=== PATIENT | female | born 1955 | race Caucasian/White ===

== ENCOUNTER 2023-10-16 06:43 | Day surgery (SDC) | payer MEDICARE, OTHER ==
[2023-10-09 14:10] VITALS: BMI 25.1
[~2023-10-16 06:43] MED LIST: LACTATED RINGERS 1,000 ML IV SCH; MOXIFLOXACIN HCL 0.5% DROPS 3 ML BTL OP PRN; TETRACAINE 0.5% OPHTH (PF) DROPS 4 ML BTL OP PRN; TIMOLOL 0.5% OPHTH DROPS 5 ML BTL OP PRN
[2023-10-16] MEDS: CYCLOPENTOLATE 1% OPHTH SOLN 2 ML BTL OP PRN ×3 (07:32→07:44)
[2023-10-16] MEDS: PHENYLEPHRINE 2.5% OPHTH DRP 2ML OP PRN ×3 (07:35→07:47)
[2023-10-16 07:46] VITALS: RESP 16; TEMP 97.9
[2023-10-16] MEDS ORDERED: MIDAZOLAM 2 MG/2 ML VIAL ONE (08:20)
[2023-10-16] MEDS ORDERED: fentaNYL (PF) 50 MCG/ML 2 ML AMP ONE (08:20)
[2023-10-16] MEDS ORDERED: HYALURONATE SODIUM INTRAOCULAR 1 EACH SYRINGE (12MG/ML) INTRAOCULA ONE (08:33)
[2023-10-16] MEDS ORDERED: BALANCED SALT IRRIG SOLN COMB2 15 ML IRRIG.SOLN IRRIGATION ONE (08:33)
[2023-10-16] MEDS ORDERED: LIDOCAINE 1% (PF) 10MG/ML VIAL MISCELLANE ONE (08:34)
--- NOTE | 2023-10-16 09:00 | P.OP ---
Date of Procedure: 10/16/23 Preoperative Diagnosis: NS Postoperative Diagnosis: NS Procedure(s) Performed: PIOL< OD Implants: MX60ET 22.50 Anesthesia: MAC Surgeon: Davian Garnica Pathology: none sent Condition: stable Disposition: same day Indications for Procedure: blurry vision Operative Findings: no complications
[2023-10-16 09:30] VITALS: BP 120/64; PULSE 59
--- NOTE | 2023-10-16 13:27 | OP ---
OPERATIVE REPORT DATE OF SERVICE : 10/16/2023 PROCEDURE PERFORMED: Phacoemulsification of cataract and intraocular lens implant of the right eye. PREOPERATIVE DIAGNOSES: Nuclear sclerosis and regular astigmatism. POSTOPERATIVE DIAGNOSES: Nuclear sclerosis and regular astigmatism. ANESTHESIA: Topical. ESTIMATED BLOOD LOSS: None. SPECIMEN TAKEN: None. NARRATIVE: After obtaining the appropriate consent, the patient was asked to sit upright and the axes of 0 and 180 degrees were identified and marked with a gentian poli marker. She was then placed in the proper supine position using previously acquired corneal topography information, the axis of 20 degrees was identified and marked with a gentian poli marker using a Vostu axis indexing device. At the 11 o'clock position, an MVR blade was used to create a paracentesis port. Through this opening, 1% Xylocaine MPF 50:50 mix with balanced salt solution was injected into the anterior chamber. This was followed by stabilization of the anterior chamber with Amvisc. At the 9 o'clock position, a 2.5 mm keratome was used to create a self-sealing corneal flap incision. Through this opening, a cystotome was introduced to begin a continuous tear capsulorrhexis, which was completed using the Utrata forceps. Hydrodissection and hydrodelineation of the lens were accomplished in 12.1 seconds and 12.8% power utilizing phaco chop. This was followed by installation of additional Xylocaine MPF and removal of the remaining cortical material from the lens in lens capsule bag, which was also lightly polished in the capsule vacuum mode. Additional Amvisc was then used to stabilize the capsular bag. A Bausch and Lomb [id number], 22.5 diopter posterior chamber intraocular lens was then inserted into the capsular bag without difficulty. The viscoelastic was removed from in and around the intraocular lens. The lens was then rotated to the 20 degree axis markos previously placed on the patient's cornea. The incisions were confirmed watertight and secured with Tisseel. She then received 2 drops of 0.5% timolol, followed by 2 drops of 0.5% moxifloxacin. It was then lightly patched and shielded in the usual manner. There were no complications from the procedure. She tolerated the procedure well and was returned to outpatient recovery in good condition. MMODL / IJN: [id number] /
== END 2023-10-16 09:35 | disposition home or self-care (01) ==
LOC: OR 06:43
PROVIDERS: ATTEND Ophthalmology
DX: H25.11 Age-related nuclear cataract, right eye (principal); H52.221 Regular astigmatism, right eye; I10 Essential (primary) hypertension; E07.9 Disorder of thyroid, unspecified; M19.90 Unspecified osteoarthritis, unspecified site; K21.9 Gastro-esophageal reflux disease without esophagitis; Z79.890 Hormone replacement therapy; Z79.899 Other long term (current) drug therapy; Z87.898 Personal history of other specified conditions
CPT/HCPCS: 66984; V2787; C1780; J2250; J3010; J2001

== ENCOUNTER 2023-12-04 06:20 | Day surgery (SDC) | payer MEDICARE, OTHER ==
[2023-11-28 16:19] VITALS: BMI 25.1
[~2023-12-04 06:20] MED LIST changes: -LACTATED RINGERS 1,000 ML IV SCH; -MOXIFLOXACIN HCL 0.5% DROPS 3 ML BTL OP PRN; -TIMOLOL 0.5% OPHTH DROPS 5 ML BTL OP PRN
[2023-12-04] MEDS: LACTATED RINGERS 1,000 ML IV ONE (06:43)
[2023-12-04] MEDS ORDERED: LIDOCAINE 1% (10MG/ML) FOR IV START INTRADERMA PRN (06:43)
[2023-12-04] MEDS ORDERED: LACTATED RINGERS 1,000 ML IV SCH (06:43)
[2023-12-04] MEDS: PHENYLEPHRINE 2.5% OPHTH DRP 2ML OP PRN (06:51)
[2023-12-04] MEDS: CYCLOPENTOLATE 1% OPHTH SOLN 2 ML BTL OP PRN (06:54)
[2023-12-04] MEDS ORDERED: fentaNYL (PF) 50 MCG/ML 2 ML AMP ONE (07:29)
[2023-12-04] MEDS ORDERED: MIDAZOLAM 2 MG/2 ML VIAL ONE (07:29)
[2023-12-04 07:36] VITALS: RESP 16; TEMP 97.3
[2023-12-04] MEDS: TIMOLOL 0.5% OPHTH DROPS 5 ML BTL OP PRN (07:57)
[2023-12-04] MEDS: MOXIFLOXACIN HCL 0.5% DROPS 3 ML BTL OP PRN (07:57)
[2023-12-04] MEDS: BALANCED SALT IRRIG SOLN COMB2 15 ML IRRIG.SOLN INTRAOCULA ONE (07:58)
[2023-12-04] MEDS: HYALURONATE SODIUM INTRAOCULAR 1 EACH SYRINGE (12MG/ML) INTRAOCULA ONE (07:58)
[2023-12-04] MEDS: LIDOCAINE 1% (PF) 10MG/ML VIAL MISCELLANE ONE (07:58)
[2023-12-04] MEDS: EPINEPHrine (PF) 0.3 ML in BALANCED SALT IRRIG SOLN COMB2 500 ML IRRIGATION ONE (08:00)
--- NOTE | 2023-12-04 08:11 | P.OP ---
Date of Procedure: 12/04/23 Preoperative Diagnosis: NS Postoperative Diagnosis: same Procedure(s) Performed: PIOL, OS Implants: [id number] Anesthesia: MAC Surgeon: Davian Garnica Pathology: none sent Condition: stable Disposition: same day Indications for Procedure: blurry vision Operative Findings: no complications
[2023-12-04 08:47] VITALS: BP 114/73; PULSE 71
--- NOTE | 2023-12-04 12:58 | OP ---
OPERATIVE REPORT DATE OF SERVICE : 12/04/2023 PREOPERATIVE DIAGNOSIS: Nuclear sclerosis. POSTOPERATIVE DIAGNOSIS: Nuclear sclerosis. OPERATION: Phacoemulsification of cataract and interocular lens implant of the left eye. ESTIMATED BLOOD LOSS: Zero. SPECIMEN TAKEN: None. NARRATIVE: After obtaining the appropriate consent, the patient was brought to the operating room where the patient was placed under cardiac monitoring and prepped and draped in the usual sterile manner. At the 5 o'clock position, a 15-degree super sharp blade was used to create a paracentesis followed by instillation of 1% Xylocaine MPF 50:50 mix with BSS into the anterior chamber. This was followed by Amvisc viscoelastic to stabilize the anterior chamber. At the 3 o'clock position a self-sealing corneal flap incision was created using 2.8 mm sirena keratome. A cystotome was used to initiate a continuous tear capsulorrhexis which was completed with the Utrata forceps. A Binkhorst cannula was used to hydrodissect the lens nucleus followed by hydrodelineation. Phacoemulsification of the lens was performed utilizing phacochop in 14.14 seconds at 15% power. The remaining cortical material was removed using the irrigation aspiration mode followed by additional 1% Xylocaine MPF into the anterior chamber followed by viscoelastic to stabilize the capsular bag. A Bausch & Lomb [id number] 23.5 diopters posterior chamber lens was placed into the capsular bag without difficulty. The remaining viscoelastic material was removed from the anterior chamber with the irrigation/aspiration. Balanced salt solution was used to normalize the intraocular pressure. The incision was checked for watertight integrity. The patient then received 2 drops of 0.5% timolol followed by 2 drops Vigamox, was lightly patched and shielded in the usual manner. There were no complications from the procedure. The patient tolerated the procedure well and was returned to recovery in good condition. MMODL / IJN: [id number] /
== END 2023-12-04 08:50 | disposition home or self-care (01) ==
LOC: OR 06:20
PROVIDERS: ATTEND Ophthalmology
DX: H25.12 Age-related nuclear cataract, left eye (principal); I10 Essential (primary) hypertension; H40.003 Preglaucoma, unspecified, bilateral; H40.233 Intermittent angle-closure glaucoma, bilateral; H52.03 Hypermetropia, bilateral; H52.4 Presbyopia; Z96.1 Presence of intraocular lens; K21.9 Gastro-esophageal reflux disease without esophagitis; M19.90 Unspecified osteoarthritis, unspecified site; Z98.890 Other specified postprocedural states; Z79.899 Other long term (current) drug therapy
CPT/HCPCS: 66984; C1780; J2250; J0171; J3010; J2001

== ENCOUNTER 2024-03-24 11:01 | Day surgery (SDC) | payer MEDICARE, OTHER ==
[2024-03-24 11:47] VITALS: TEMP 97.1
[2024-03-24] MEDS: LACTATED RINGERS 1,000 ML IV SCH (11:54)
[2024-03-24] MEDS: IV FLUID CONTINUATION 1,000 ML IV ONE (11:55)
[2024-03-24] MEDS ORDERED: PROPOFOL 10 MG/ML 20 ML VIAL IV ONE (12:21)
[2024-03-24] MEDS ORDERED: LIDOCAINE 1% INJ 10MG/ML (20 ML MDV) ONE (12:21)
--- NOTE | 2024-03-24 12:28 | P.GSHP ---
History of Present Illness H&P Date: 03/24/24 Chief Complaint: GERD 69-year-old female here for EGD with possible biopsy or dilation. Patient with chronic reflux. Some worsening dysphagia recently. Apparently has a history of Damon's esophagus in the past. Takes Pepcid once nightly. Past Medical History Past Medical History: GERD/Reflux, Osteoarthritis (OA), Thyroid Disorder Additional Past Medical History / Comment(s): OA "everywhere", and "PAT- excercise induced tachycardia"; dislocated right shoulder 2 yrs ago after fall; hx. barretts esophagus and ulcer on first EGD 10-12 yrs ago. food feeling like it "gets stuck" History of Any Multi-Drug Resistant Organisms: None Reported Past Surgical History: Appendectomy, Orthopedic Surgery, Tonsillectomy Additional Past Surgical History / Comment(s): "bone spurs removed from each shoulder." Deviated septal repair; cataract removal rt eye Sep 2023, cataracts removed left eye November 2023. EGD, colonoscopy about 5 yrs ago. Past Anesthesia/Blood Transfusion Reactions: No Reported Reaction Additional Past Anesthesia/Blood Transfusion Reaction / Comment(s): No hx of blood transfusion. Smoking Status: Never smoker - Past Family History Father Family Medical History: No Reported History Medications and Allergies Home Medications Medication Instructions Recorded Confirmed Type Acetaminophen [Tylenol Extra 1,000 mg PO QID PRN 10/09/23 03/24/24 History Strength] Baclofen 5 mg PO HS PRN 10/09/23 03/24/24 History Calcium Carbonate/Vitamin D3 1 each PO HS 10/09/23 03/24/24 History [Calcium 600 mg-D3 20 mcg (800 unit)] Famotidine [Pepcid] 20 mg PO HS 10/09/23 03/24/24 History Levocetirizine Dihydrochloride 5 mg PO DAILY PRN 10/09/23 03/24/24 History Levothyroxine Sodium [Synthroid] 112 mcg PO QAM 10/09/23 03/24/24 History Metoprolol Succinate [Toprol XL] 50 mg PO HS 10/09/23 03/24/24 History Allergies Allergy/AdvReac Type Severity Reaction Status Date / Time No Known Allergies Allergy Verified 03/24/24 11:43 Surgical - Exam Vital Signs Temp Pulse Resp BP Pulse Ox 97.1 F L 62 18 149/76 96 03/24/24 11:41 03/24/24 11:41 03/24/24 11:41 03/24/24 11:41 03/24/24 11:41 Physical exam: General: Well-developed, well-nourished HEENT: Normocephalic, sclerae nonicteric Abdomen: Nontender, nondistended Extremities: No edema Neuro: Alert and oriented Assessment and Plan (1) Dysphagia Narrative/Plan: Will proceed with EGD with possible dilation/biopsy at this time. Current Visit: Yes Status: Acute Code(s): R13.10 - DYSPHAGIA, UNSPECIFIED SNOMED Code(s): 01244991
--- NOTE | 2024-03-24 12:35 | P.PCN ---
Date of Procedure: 03/24/24 Procedure(s) Performed: Preoperative Dx: History of ulcers, dysphagia Postoperative Dx: Mild gastritis, small hiatal hernia, small esophageal lesion Procedure: EGD with Bx Anesthesia: Sedation Endoscopist: Dr. Cummings Specimens: Antrum, esophageal lesion Endoscopic Procedure: The patient was on the endoscopy table in the left decubitus position. The Olympus gastroscope was inserted into the oropharynx and passed under direct visualization to the region of the third portion of the duodenum. From that point the scope was slowly withdrawn inspecting all surfaces carefully. There were no neoplastic inflammatory or polypoid lesions throughout the duodenum. The pylorus was widely patent. The stomach was carefully inspected. There was mild gastritis present. A biopsy of the antrum took place to rule out H. pylori. Retroflexion revealed a small sliding hiatal hernia. The esophagus was then carefully examined. There was noted to be a small superficial 3 to 4 mm lesion of the mid esophagus. This was removed using a biopsy forceps. The proximal esophagus appeared normal. There was no signs of Damon's esophagus. There was no evidence of stricture formation or narrowing. The patient was then taken to the recovery room in stable condition per anesthesia guidelines. Recommendations: Await biopsy results. Continue as needed antiacid therapy.
[2024-03-24 12:41] VITALS: RESP 16
[2024-03-24 13:05] VITALS: BP 120/61; PULSE 64
== END 2024-03-24 13:22 | disposition home or self-care (01) ==
LOC: ORWHC2ENDO 11:01
PROVIDERS: ATTEND Surgery
DX: K29.50 Unspecified chronic gastritis without bleeding (principal); K44.9 Diaphragmatic hernia without obstruction or gangrene; K21.9 Gastro-esophageal reflux disease without esophagitis; E07.9 Disorder of thyroid, unspecified; M19.90 Unspecified osteoarthritis, unspecified site; Z79.890 Hormone replacement therapy; Z90.49 Acquired absence of other specified parts of digestive tract; Z90.89 Acquired absence of other organs; Z87.19 Personal history of other diseases of the digestive system; Z79.899 Other long term (current) drug therapy
CPT/HCPCS: 43239; J2001; J2704; 88305

== ENCOUNTER 2024-07-20 14:12 | Observation (INO) | payer MEDICARE, OTHER ==
[2024-07-20 14:34] LABS: Glucose,Whole Blood 101 mg/dL (70-110)
--- NOTE | 2024-07-20 14:38 | ED ---
Neuro HPI - General Chief Complaint: Neuro Symptoms/Deficit Stated Complaint: migraine Time Seen by Provider: 07/20/24 14:27 Source: patient, RN notes reviewed, old records reviewed Mode of arrival: ambulatory Limitations: no limitations - History of Present Illness Is the patient presenting with stroke symptoms?: No -: hour(s) Initial Comments: This is a 69-year-old female to the ER for evaluation of significant expressive aphasia starting when she awoke from a nap this afternoon. This occurred maybe around noon when she laid down to her nap between when she awoke about an hour prior to arrival in the emergency department. Patient has no history of stroke, no history of high blood pressure high cholesterol diabetes no history of smoking or heart disease. Patient symptoms of significant confusion with word finding difficulty expressing her thoughts and feelings are improved currently Location: speech, dysarthria History of same: Yes Place: home Severity: mild Quality: weak, numb, tingling Improves With: none Worsens With: time On Anticoagulants: No Context: sudden onset Associated Symptoms: confusion Treatments Prior to Arrival: none - Related Data Home Medications: Home Medications Medication Instructions Recorded Confirmed Calcium Carbonate/Vitamin D3 1 tab PO HS 10/09/23 07/20/24 [Calcium 600 mg-D3 20 mcg (800 unit)] Famotidine [Pepcid] 20 mg PO HS 10/09/23 07/20/24 Levocetirizine Dihydrochloride 5 mg PO HS 10/09/23 07/20/24 Levothyroxine Sodium [Synthroid] 112 mcg PO DAILY 10/09/23 07/20/24 Metoprolol Succinate [Toprol XL] 50 mg PO HS 10/09/23 07/20/24 Levothyroxine Sodium [Synthroid] 56 mcg PO SUWEFR 07/20/24 07/20/24 Previous Rx's Medication Instructions Recorded Aspirin EC [Ecotrin Low Dose] 81 mg PO DAILY #30 tab 07/22/24 Atorvastatin [Lipitor] 20 mg PO HS #30 tablet 07/22/24 Allergies/Adverse Reactions: Allergies Allergy/AdvReac Type Severity Reaction Status Date / Time No Known Allergies Allergy Verified 07/20/24 16:27 Review of Systems ROS Statement: Those systems with pertinent positive or pertinent negative responses have been documented in the HPI. ROS Other: All systems not noted in ROS Statement are negative. General Exam Limitations: no limitations General appearance: alert, in no apparent distress Head exam: Present: atraumatic, normocephalic, normal inspection Eye exam: Present: normal appearance, PERRL, EOMI. Absent: scleral icterus, co njunctival injection, periorbital swelling ENT exam: Present: normal exam, mucous membranes moist Neck exam: Present: normal inspection. Absent: tenderness, meningismus, lymphadenopathy Respiratory exam: Present: normal lung sounds bilaterally. Absent: respiratory distress, wheezes, rales, rhonchi, stridor Cardiovascular Exam: Present: regular rate, normal rhythm, normal heart sounds. Absent: systolic murmur, diastolic murmur, rubs, gallop, clicks GI/Abdominal exam: Present: soft, normal bowel sounds. Absent: distended, tenderness, guarding, rebound, rigid Extremities exam: Present: normal inspection, full ROM, normal capillary refill. Absent: tenderness, pedal edema, joint swelling, calf tenderness Back exam: Present: normal inspection Neurological exam: Present: alert, oriented X3, CN II-XII intact Psychiatric exam: Present: normal affect, normal mood Skin exam: Present: warm, dry, intact, normal color. Absent: rash Stroke MDM - Lab Data Result diagrams: 07/20/24 14:28 07/20/24 14:28 Lab Results 07/20/24 07/20/24 07/20/24 Range/Units 14:28 14:28 14:28 WBC 7.4 (3.8-10.6) k/uL RBC 5.17 (3.80-5.40) m/uL Hgb 15.1 (11.4-16.0) gm/dL Hct 45.5 (34.0-46.0) % MCV 87.9 (80.0-100.0) fL MCH 29.3 (25.0-35.0) pg MCHC 33.3 (31.0-37.0) g/dL RDW 12.8 (11.5-15.5) % Plt Count 251 (150-450) k/uL MPV 6.8 Neutrophils % 56 % Lymphocytes % 34 % Monocytes % 5 % Eosinophils % 2 % Basophils % 1 % Neutrophils # 4.1 (1.3-7.7) k/uL Lymphocytes # 2.5 (1.0-4.8) k/uL Monocytes # 0.4 (0-1.0) k/uL Eosinophils # 0.1 (0-0.7) k/uL Basophils # 0.1 (0-0.2) k/uL PT 10.3 (10.0-12.5) sec INR 0.9 (<1.2) APTT 28.9 (22.0-30.0) sec Sodium 139 (137-145) mmol/L Potassium 4.8 (3.5-5.1) mmol/L Chloride 103 (98-107) mmol/L Carbon Dioxide 26 (22-30) mmol/L Anion Gap 10 mmol/L BUN 21 H (7-17) mg/dL Creatinine 0.82 (0.52-1.04) mg/dL Est GFR (CKD-EPI)AfAm 84 (>60 ml/min/1.73 sqM) Est GFR (CKD-EPI)NonAf 73 (>60 ml/min/1.73 sqM) Glucose 104 H (74-99) mg/dL POC Glucose (mg/dL) (70-110) mg/dL POC Glu Parboiler ID Estimated Ave Glu mg/dL mg/dL Hemoglobin A1c (<=6.0) % Calcium 9.9 (8.4-10.2) mg/dL Total Bilirubin 0.9 (0.2-1.3) mg/dL AST 31 (14-36) U/L ALT 21 (4-34) U/L Alkaline Phosphatase 93 (38-126) U/L Creatine Kinase 85 (30-135) U/L Troponin I (0.000-0.034) ng/mL Total Protein 7.6 (6.3-8.2) g/dL Albumin 4.8 (3.5-5.0) g/dL 07/20/24 07/20/24 07/20/24 Range/Units 14:28 14:28 14:31 WBC (3.8-10.6) k/uL RBC (3.80-5.40) m/uL Hgb (11.4-16.0) gm/dL Hct (34.0-46.0) % MCV (80.0-100.0) fL MCH (25.0-35.0) pg MCHC (31.0-37.0) g/dL RDW (11.5-15.5) % Plt Count (150-450) k/uL MPV Neutrophils % % Lymphocytes % % Monocytes % % Eosinophils % % Basophils % % Neutrophils # (1.3-7.7) k/uL Lymphocytes # (1.0-4.8) k/uL Monocytes # (0-1.0) k/uL Eosinophils # (0-0.7) k/uL Basophils # (0-0.2) k/uL PT (10.0-12.5) sec INR (<1.2) APTT (22.0-30.0) sec Sodium (137-145) mmol/L Potassium (3.5-5.1) mmol/L Chloride (98-107) mmol/L Carbon Dioxide (22-30) mmol/L Anion Gap mmol/L BUN (7-17) mg/dL Creatinine (0.52-1.04) mg/dL Est GFR (CKD-EPI)AfAm (>60 ml/min/1.73 sqM) Est GFR (CKD-EPI)NonAf (>60 ml/min/1.73 sqM) Glucose (74-99) mg/dL POC Glucose (mg/dL) 101 (70-110) mg/dL POC Glu Parboiler ID Job [address] Est[address] Glu mg/dL 117 mg/dL Hemoglobin A1c 5.7 (<=6.0) % Calcium (8.4-10.2) mg/dL Total Bilirubin (0.2-1.3) mg/dL AST (14-36) U/L ALT (4-34) U/L Alkaline Phosphatase (38-126) U/L Creatine Kinase (30-135) U/L Troponin I <0.012 (0.000-0.034) ng/mL Total Protein (6.3-8.2) g/dL Albumin (3.5-5.0) g/dL - NIH Stroke Scale 1a. Level of Consciousness: (0) alert 1b. LOC Questions: (0) answers correctly 1c. LOC Commands: (0) performs tasks correctly 2. Best Gaze: (0) normal 3. Visual: (0) no visual loss 4. Facial Palsy: (0) normal symmetrical movement 5a. Motor Arm Left: (0) no drift 5b. Motor Arm Right: (0) no drift 6a. Motor Leg Left: (0) no drift 6b. Motor Leg Right: (0) no drift 7. Limb Ataxia: (0) absent 8. Sensory: (0) normal 9. Best Language: (0) no aphasia 10. Dysarthria: (0) normal 11. Extinction/Inattention: (0) no abnormality - Thrombolytic Inclusion/Exclusion Thrombolytic Exclusion Criteria: Onset of Symptoms Unknown (3 to 4 hours prior to arrival, but unsure of this is when patient laid down for a nap) Thrombolytic Inclusion Criteria: Symptom Onset < 4.5 h - Medical Decision Making 69 female to ER for evaluation of CVA symptoms expressive aphasia which are resolved on arrival to the ER patient continues to improve here in the ER has normal imaging and can be admitted for further neurologic monitoring - Radiology Data Radiology results: report reviewed (CT brain CTA head neck negative for acute disease), image reviewed - EKG Data -: EKG Interpreted by Me (EKG sinus 66 GA 134 QRS 113 QTc 405) Past Medical History Past Medical History: GERD/Reflux, Osteoarthritis (OA), Thyroid Disorder Additional Past Medical History / Comment(s): OA "everywhere", and "PAT-excercise induced tachycardia"; dislocated right shoulder 2 yrs ago after fall; hx. barretts esophagus and ulcer on first EGD 10-12 yrs ago. food feeling like it "gets stuck" History of Any Multi-Drug Resistant Organisms: None Reported Past Surgical History: Appendectomy, Orthopedic Surgery, Tonsillectomy Additional Past Surgical History / Comment(s): "bone spurs removed from each shoulder." Deviated septal repair; cataract removal rt eye Sep 2023, cataracts removed left eye November 2023. EGD, colonoscopy about 5 yrs ago. Past Anesthesia/Blood Transfusion Reactions: No Reported Reaction Additional Past Anesthesia/Blood Transfusion Reaction / Comment(s): No hx of blood transfusion. Past Psychological History: No Psychological Hx Reported Smoking Status: Never smoker Past Alcohol Use History: None Reported Past Drug Use History: None Reported - Past Family History Father Family Medical History: No Reported History Course Vital Signs 07/20/24 07/20/24 07/20/24 14:18 14:21 15:58 Temperature 98.4 F Pulse Rate 75 68 64 Respiratory 18 16 20 Rate Blood Pressure 156/82 160/85 141/77 O2 Sat by Pulse 99 98 98 Oximetry 07/20/24 07/20/24 07/20/24 16:00 16:47 18:00 Temperature Pulse Rate 64 68 77 Respiratory 20 20 20 Rate Blood Pressure 141/77 140/68 140/60 O2 Sat by Pulse 98 98 98 Oximetry 07/20/24 07/21/24 07/21/24 22:01 02:34 06:25 Temperature Pulse Rate 66 65 67 Respiratory 17 18 17 Rate Blood Pressure 129/76 116/72 125/70 O2 Sat by Pulse 99 95 Oximetry 07/21/24 07/21/24 07/21/24 07:42 09:25 11:25 Temperature 98.6 F 98.4 F Pulse Rate 64 68 76 Respiratory 16 16 16 Rate Blood Pressure 118/64 132/75 134/73 O2 Sat by Pulse 98 98 96 Oximetry 07/21/24 07/21/24 07/21/24 12:28 14:17 16:27 Temperature 97.7 F 98.6 F Pulse Rate 80 79 76 Respiratory 17 17 18 Rate Blood Pressure 135/83 131/68 129/84 O2 Sat by Pulse 96 98 95 Oximetry 07/21/24 07/21/24 18:21 20:36 Temperature 98.4 F 98.9 F Pulse Rate 71 67 Respiratory 17 17 Rate Blood Pressure 130/87 135/76 O2 Sat by Pulse 79 L 97 Oximetry - Reevaluation(s) Reevaluation #1: 07/20/24 17:46 Medical records reviewed Code stroke was paged Reevaluation #2: 07/20/24 17:46 Patient symptoms resolved remain resolved Reevaluation #3: 07/20/24 17:46 Patient informed of results questions answered Reevaluation #4: Was pt. sent in by a medical professional or institution (, PA, COAT EXAMINER, urgent care, hospital, or care home...) When possible be specific @ -no Did you speak to anyone other than the patient for history (EMS, parent, family, police, friend...)? What history was obtained from this source @ -no Did you review nursing and triage notes (agree or disagree)? Why? @ -agree Are old charts reviewed (outside hosp., previous admission, EMS record, old EKG, old radiological studies, urgent care reports/EKG's, care home records)? Report findings @ -yes Differential Diagnosis (chest pain, altered mental status, abdominal pain women, abdominal pain men, vaginal bleeding, weakness, fever, dyspnea, syncope, headache, dizziness, GI bleed, back pain, seizure, CVA, palpatations, mental health, musculoskeletal)? @ -prior EKG interpreted by me (3pts min.). @ -yes X-rays interpreted by me (1pt min.). @ -yes negative for acute disease CT interpreted by me (1pt min.). @ -Yes negative for acute bleed or acute disease U/S interpreted by me (1pt. min.). @ -no What testing was considered but not performed or refused? (CT, X-rays, U/S, labs)? Why? @ -none What meds were considered but not given or refused? Why? @ -none Did you discuss the management of the patient with other professionals (professionals i.e. , PA, COAT EXAMINER, lab, RT, psych nurse, social welfare research worker, morgue attendant, teacher, senior escrow officer, medical case manager)? Give summary @ -no Was smoking cessation discussed for >3mins.? @ -no Was critical care preformed (if so, how long)? @ -yes31 Were there social determinants of health that impacted care today? How? (Homel essness, low income, unemployed, alcoholism, drug addiction, transportation, low edu. Level, literacy, decrease access to med. care, [facility], rehab)? @ -none Was there de-escalation of care discussed even if they declined (Discuss DNR or withdrawal of care, Hospice)? DNR status @ -no What co-morbidities impacted this encounter? (DM, HTN, Smoking, COPD, CAD, Cancer, CVA, ARF, Chemo, Hep., AIDS, mental health diagnosis, sleep apnea, morbid obesity)? @ -none Was patient admitted / discharged? Hospital course, mention meds given and route, prescriptions, significant lab abnormalities, going to OR and other pertinent info. @ - 69 female to ER for evaluation of CVA symptoms expressive aphasia which are resolved on arrival to the ER patient continues to improve here in the ER has normal imaging and can be admitted for further neurologic monitoring Expressive aphasia Admitted Undiagnosed new problem with uncertain prognosis? @ -no Drug Therapy requiring intensive monitoring for toxicity (Heparin, Nitro, Insulin, Cardizem)? @ -no Were any procedures done? @ -no Diagnosis/symptom? @ -CVA Acute, or Chronic, or Acute on Chronic? @ -Acute Uncomplicated (without systemic symptoms) or Complicated (systemic symptoms)? @ -Complicated Side effects of treatment? @ -no Exacerbation, Progression, or Severe Exacerbation? @ -exacerbation Poses a threat to life or bodily function? How? (Chest pain, [place], VA, pneumonia, PE, COPD, DKA, ARF, appy, cholecystitis, CVA, Diverticulitis, Homicidal, Suicidal, threat to staff... and all critical care pts) @ -yes acute CVA Reevaluation #5: Differential CVA Ischemic stroke, hemorrhagic stroke, brain tumor, atypical migraine, Wernicke's encephalopathy, seizure, multiple sclerosis, meningitis, encephalitis, hypoglycemia, Guillain-Padgett, electrolytes disturbance, myasthenia gravis.... This is not meant to be an all-inclusive list - Consultations Consultation #1: Spoke with Dr. Pfeiffer who agrees to admit this patient Critical Care Time Critical Care Time: Yes Total Critical Care Time: 31 Disposition Clinical Impression: Cerebrovascular accident (CVA), Transient cerebral ischemia Disposition: ADMITTED IP TO THIS HOSP Condition: Serious Is patient prescribed a controlled substance at d/c from ED?: No Time of Disposition: 17:45
[2024-07-20] MEDS: SODIUM CHLORIDE 0.9% 1,000 ML IV STA (14:39)
[2024-07-20 14:43] LABS: Basophils # (A) 0.1 k/uL (0-0.2); Basophils % (A) 1 %; Eosinophils # (A) 0.1 k/uL (0-0.7); Eosinophils % (A) 2 %; HCT 45.5 % (34.0-46.0); HGB 15.1 gm/dL (11.4-16.0); Lymphocytes # (A) 2.5 k/uL (1.0-4.8); Lymphocytes % (A) 34 %; MCH 29.3 pg (25.0-35.0); MCHC 33.3 g/dL (31.0-37.0); MCV 87.9 fL (80.0-100.0); Mean Platelet Volume 6.8; Monocytes # (A) 0.4 k/uL (0-1.0); Monocytes % (A) 5 %; Neutrophils # (A) 4.1 k/uL (1.3-7.7); Neutrophils % (A) 56 %; Platelet Count 251 k/uL (150-450); RBC 5.17 m/uL (3.80-5.40); RDW 12.8 % (11.5-15.5); WBC 7.4 k/uL (3.8-10.6)
[2024-07-20 14:51] LABS: INR 0.9 (<1.2)
[2024-07-20 14:52] LABS: Partial Thromboplastin Time 28.9 sec (22.0-30.0); Prothrombin Time 10.3 sec (10.0-12.5)
[2024-07-20 14:59] LABS: ALT 21 U/L (4-34); AST 31 U/L (14-36); African American GFR (CKD) 84 (>60 ml/min/1.73 sqM); Albumin 4.8 g/dL (3.5-5.0); Alkaline Phosphatase 93 U/L (38-126); Anion Gap 10 mmol/L; Blood Urea Nitrogen 21 mg/dL (7-17); Calcium 9.9 mg/dL (8.4-10.2); Carbon Dioxide 26 mmol/L (22-30); Chloride 103 mmol/L (98-107); Creatine Kinase 85 U/L (30-135); Glucose 104 mg/dL (74-99); Non-African American GFR(CKD) 73 (>60 ml/min/1.73 sqM); Potassium 4.8 mmol/L (3.5-5.1); Sodium 139 mmol/L (137-145); Total Bilirubin 0.9 mg/dL (0.2-1.3); Total Protein 7.6 g/dL (6.3-8.2)
--- NOTE | 2024-07-20 15:13 | CT ---
EXAMINATION TYPE: CT brain wo con DATE OF EXAM: 07/20/2024 COMPARISON: None CLINICAL INDICATION: Female, 69 years old with history of Neuro deficit, acute, stroke suspected; PHH , headache x few hours and difficulty with speech CT DLP: 1143.6 mGycm Automated exposure control for dose reduction was used. Findings: The ventricles, basal cisterns and sulci over convexities are within normal limits and there is no ma ss effect or shift in midline structures. No abnormal density is seen throughout the brain parenchyma .. There is no acute intra or extra-axial hemorrhage. The posterior fossa including the brainstem, fourth ventricle and cerebellopontine angles appear shalini sly normal. The intraorbital contents appear normal symmetric Visualized paranasal sinuses and mastoid air cells are well aerated. Calvarium is intact. IMPRESSION: No acute bleed or mass effect. No significant abnormality.. [facility], , 07/20/2024 3:10 PM
--- NOTE | 2024-07-20 15:35 | CT ---
EXAMINATION TYPE: CT angio head neck DATE OF EXAM: 07/20/2024 COMPARISON: None CLINICAL INDICATION: Female, 69 years old with history of Neuro deficit, acute, stroke suspected; PHH , headache x few hours and difficulty with speech TECHNIQUE: CTA scan of the head and neck is performed with IV Contrast, patient injected with 65 ml mL of Isovue 370, axial images are obtained, coronal and sagittal reformatted images are reviewed. 3D reconstructed images are created on an independent workstation and reviewed. CT DLP: 385.4 mGycm Automated exposure control for dose reduction was used. NASCET criteria was used in interpretation of this exam? FINDINGS: FINDINGS: The brachiocephalic origins are widely patent and no significant stenosis. There is no significant stenosis of the common or internal carotid arteries within the neck. There is no stenosis of the vertebral arteries. Intracranially, there is no stenosis, segmental occlusion, sizable aneurysm sac or vascular malformat ion. IMPRESSION:. No significant abnormality seen. NASCET criteria was used in interpretation of this exam? [facility], Workstation: [facility] 07/20/2024 3:32 PM
--- NOTE | 2024-07-20 16:40 | XR ---
EXAMINATION TYPE: XR chest 2V DATE OF EXAM: 07/20/2024 COMPARISON: NONE HISTORY: Altered mental status TECHNIQUE: Frontal and lateral views of the chest are obtained. FINDINGS: There is no focal air space opacity, pleural effusion, or pneumothorax seen. The cardiac silhouette size is within normal limits. The osseous structures are intact. IMPRESSION: No acute cardiopulmonary process. [facility], Workstation: [id number], 07/20/2024 4:37 PM
[2024-07-20] MEDS: ASPIRIN 325 MG TAB PO STA (18:33)
[2024-07-20] MEDS: SODIUM CHLORIDE 0.9% 1,000 ML IV SCH (18:34)
[2024-07-20] MEDS: ATORVASTATIN 80 MG TAB PO SCH (22:07)
[2024-07-21] MEDS: ASPIRIN 325 MG TAB PO SCH (08:40)
[2024-07-21] MEDS: LEVOTHYROXINE 112 MCG TAB PO SCH (09:25)
[2024-07-21] MEDS: ACETAMINOPHEN TAB 500 MG TAB PO STA (09:25)
[2024-07-21] MEDS: MAGNESIUM SULFATE-D5W PMX 1 GM in DEXTROSE/WATER 1 100ML.BAG IVPB ONE (09:27)
[2024-07-21 10:37] LABS: Chol/HDL Ratio 3.43 Ratio; LDL Cholesterol,Calculated 144.3 mg/dL (0.0-131.0); VLDL Calculation 13.56 mg/dL (5.00-40.00)
[2024-07-21] MEDS: PANTOPRAZOLE 40 MG/10 ML VIAL IVP SCH (12:25)
--- NOTE | 2024-07-21 12:25 | P.HPIM ---
History of Present Illness H&P Date: 07/21/24 Chief Complaint: Word finding difficulty/aphasia, migraine This is a 69-year-old female with past medical history significant for migraines hypothyroidism, gastroesophageal reflux disease, Damon's esophagus, PAT, exercise-induced, osteoarthritis, panic attack 20 years ago presented to the ER with progressing migraine accompanied by aphasia. Patient reports her last migraine was about a year ago. Reports yesterday morning developed migraine headache left-sided frontal/occipital, with its common aura,"shimmering " vision, encounter trouble reading the screen and proceeded to lay down for couple of hours. Upon awakening she experienced word finding difficulty. Sta leticia that she was able to understand what was being said to her, knew what she wanted to say, but unable to say the right words. Both she and her were aware of her difficulty speaking. During this event patient denied heaviness, weakness of extremities, numbness or tingling. Proceeded to PCPs office and was immediately directed to the ER. Patient was outside the window for tPA. Continued to have left occipital headache, received Tylenol in the ER. Family history unknown, patient is adopted. Review of Systems ROS Statement: Those systems with pertinent positive or pertinent negative responses have been documented in the HPI. ROS Other: All systems not noted in ROS Statement are negative. Past Medical History Past Medical History: GERD/Reflux, Osteoarthritis (OA), Thyroid Disorder Additional Past Medical History / Comment(s): OA "everywhere", and "PAT- excercise induced tachycardia"; dislocated right shoulder 2 yrs ago after fall; hx. barretts esophagus and ulcer on first EGD 10-12 yrs ago. food feeling like it "gets stuck" History of Any Multi-Drug Resistant Organisms: None Reported Past Surgical History: Appendectomy, Orthopedic Surgery, Tonsillectomy Additional Past Surgical History / Comment(s): "bone spurs removed from each shoulder." Deviated septal repair; cataract removal rt eye Sep 2023, cataracts removed left eye November 2023. EGD, colonoscopy about 5 yrs ago. Past Anesthesia/Blood Transfusion Reactions: No Reported Reaction Additional Past Anesthesia/Blood Transfusion Reaction / Comment(s): No hx of blood transfusion. Past Psychological History: No Psychological Hx Reported Smoking Status: Never smoker Past Alcohol Use History: None Reported Past Drug Use History: None Reported - Past Family History Father Family Medical History: No Reported History Medications and Allergies Home Medications Medication Instructions Recorded Confirmed Type Calcium Carbonate/Vitamin D3 1 tab PO HS 10/09/23 07/20/24 History [Calcium 600 mg-D3 20 mcg (800 unit)] Famotidine [Pepcid] 20 mg PO HS 10/09/23 07/20/24 History Levocetirizine Dihydrochloride 5 mg PO HS 10/09/23 07/20/24 History Levothyroxine Sodium [Synthroid] 112 mcg PO DAILY 10/09/23 07/20/24 History Metoprolol Succinate [Toprol XL] 50 mg PO HS 10/09/23 07/20/24 History Levothyroxine Sodium [Synthroid] 56 mcg PO SUWEFR 07/20/24 07/20/24 History Aspirin EC [Ecotrin Low Dose] 81 mg PO DAILY #30 tab 07/22/24 Rx Atorvastatin [Lipitor] 20 mg PO HS #30 tablet 07/22/24 Rx Allergies Allergy/AdvReac Type Severity Reaction Status Date / Time No Known Allergies Allergy Verified 07/20/24 16:27 Physical Exam Vitals: Vital Signs Temp Pulse Resp BP Pulse Ox 07/21/24 11:25 98.4 F 76 16 134/73 96 07/21/24 09:25 98.6 F 68 16 132/75 98 07/21/24 07:42 64 16 118/64 98 07/21/24 06:25 67 17 125/70 95 07/21/24 02:34 65 18 116/72 99 07/20/24 22:01 66 17 129/76 07/20/24 18:00 77 20 140/60 98 07/20/24 16:47 68 20 140/68 98 07/20/24 16:00 64 20 141/77 98 07/20/24 15:58 64 20 141/77 98 07/20/24 14:21 68 16 160/85 98 07/20/24 14:18 98.4 F 75 18 156/82 99 PHYSICAL EXAM: VITAL SIGNS: [reviewed] GENERAL: Alert and oriented x 3, sitting up on stretcher, no acute distress HEENT: Normocephalic, atraumatic ,conjunctivae normal. eyes normal. NECK: No JVD. No thyroid enlargement. No LNs CARDIOVASCULAR: S1, S2 regular.. No murmur RESPIRATION: Breath sounds diminished in the bases. No rhonchi or crackles. No bronchial breathing. ABDOMEN: Soft, nontender . No guarding. no masses palpable. No ascites, No hepatosplenomegaly.Bowel sounds heard. LEGS: No edema. no swelling PSYCHIATRY: Alert and oriented X3, mood and affect normal. NERVOUS SYSTEM: Cranial N 2-12 grossly normal. Moves all 4 limbs. Diffuse weakness No focal deficits. Strength and sensation grossly intact.. Skin: no lesions, no rash Joints: No active swelling. No inflammation. Lymphatic system. No LN neck axilla or groin. Results CBC & Chem 7: 07/20/24 14:28 07/20/24 14:28 Labs: Abnormal Lab Results - Last 24 Hours (Table) 07/20/24 07/21/24 Range/Units 14: 07:25 BUN 21 H (7-17) mg/dL Glucose 104 H (74-99) mg/dL Cholesterol 223.00 H (0.00-200.00) mg/dL LDL Cholesterol, Calc 144.3 H (0.0-131.0) mg/dL HDL Cholesterol 65.10 H (40.00-60.00) mg/dL Assessment and Plan Assessment: Migraine headache with aphasia, ruling out TIA, CVA History of migraines Hypothyroidism Gastroesophageal reflux disease Osteoarthritis PAT, exercise-induced Damon's esophagus Bilateral cataract surgery History of panic attacks, last one 20 years ago Plan: Continue on current medication regimen ,monitoring and symptomatic treatment. IV fluid hydration, statin and aspirin. PPI ordered for GI prophylaxis. Ambulatory.Telemetry monitoring, neurochecks, neurology consult in place. Echo pending. PT/OT/speech therapy consults in place. The impression and plan of care has been dictated as directed. : I performed a history and examination of this patient, discussed the same with the dictator. I agree with the dictator's note ,documented as a scribe. Any additional findings or plans will be noted.
--- NOTE | 2024-07-21 16:37 | CA ---
Transthoracic Echo Report Name: Milli Garcia Age: 69 Gender: F : 1955 Exam Date: 07/21/2024 14:59 Exam Location: [place] [facility] Ht (in): 69 Wt (lb): 170 Ordering Physician: Ras Silva DO Attending/Referring Phys: [id number], Shira Internal Control Analyst Marilu Garcia RDCS Procedure CPT: Indications: Thrombus Cardiac Hx: Technical Quality: Fair Contrast 1: Total Dose (mL): Contrast 2: Total Dose (mL): MEASUREMENTS (Male / Female) Normal Values 2D ECHO LV Diastolic Diameter PLAX 4.2 cm 4.2 - 5.9 / 3.9 - 5.3 cm LV Systolic Diameter PLAX 2.8 cm IVS Diastolic Thickness 0.9 cm 0.6 - 1.0 / 0.6 - 0.9 cm LVPW Diastolic Thickness 1.0 cm 0.6 - 1.0 / 0.6 - 0.9 cm LV Relative Wall Thickness 0.4 RV Internal Dim ED PLAX 1.7 cm Aortic Root Diameter 3.5 cm LA Systolic Diameter LX 4.0 cm 3.0 - 4.0 / 2.7 - 3.8 cm LV Diastolic Volume MOD BP 55.9 cm??? 67 - 155 / 56 - 104 cm??? LV Systolic Volume MOD BP 13.8 cm??? - 58 / 19 - 49 cm??? LV Ejection Fraction MOD BP 75.4 % >= 55 % LV Cardiac Index MOD BP 1580.6 cm???/min???m??? LV Diastolic Volume MOD 4C 71.8 cm??? LV Systolic Volume MOD 4C 15.2 cm??? LV Ejection Fraction MOD 4C 78.8 % LV Cardiac Index MOD 4C 2121.9 cm???/min???m??? LV Diastolic Length 4C 6.7 cm LV Systolic Length 4C 5.8 cm LV Diastolic Volume MOD 2C 42.8 cm??? LV Systolic Volume MOD 2C 12.7 cm??? LV Ejection Fraction MOD 2C 70.3 % LV Cardiac Index MOD 2C 1127.6 cm???/min???m??? LV Diastolic Length 2C 6.5 cm LV Systolic Length 2C 5.9 cm LA Volume 38.4 cm??? 18 - 58 / 22 - 52 cm??? LA Volume Index 19.7 cm???/m??? 16 - 28 cm???/m??? M-MODE Aortic Root Diameter MM 3.3 cm LA Systolic Diameter MM 3.1 cm LA Ao Ratio MM 0.9 AV Cusp Separation MM 2.0 cm DOPPLER AI Peak Velocity 402.4 cm/s AI Peak Gradient 64.8 mmHg AI Pressure Half Time 1622.4 ms MV Area PHT 2.7 cm??? Mitral E Point Velocity 90.7 cm/s Mitral A Point Velocity 81.5 cm/s Mitral E to A Ratio 1.1 MV Deceleration Time 281.7 ms TR Peak Velocity 222.0 cm/s TR Peak Gradient 19.7 mmHg Right Ventricular Systolic Press 24.2 mmHg FINDINGS Left Ventricle Left ventricular ejection fraction is estimated at 60-65 %. Left ventricular cavity size normal. No obvious regional wall motion abnormalities. Mildly increased left ventricular wall thickness. Right Ventricle Normal right ventricular size and function. Right ventricular systolic pressure within normal limits. Right Atrium Mild right atrial dilatation. Left Atrium Mild left atrial dilatation. Mitral Valve Structurally normal mitral valve. Mild mitral regurgitation. No mitral stenosis. Aortic Valve Trileaflet aortic valve. Mild aortic regurgitation. No aortic stenosis. Tricuspid Valve Structurally normal tricuspid valve. Mild tricuspid regurgitation. No tricuspid stenosis. Pulmonic Valve Structurally normal pulmonic valve. Trace pulmonic regurgitation. No pulmonic stenosis. Pericardium No pericardial or pleural effusion. Aorta Normal size aortic root and proximal ascending aorta. CONCLUSIONS Normal LV function Mild mitral regurgitation Mild aortic regurgitation Previewed by: Dr. Gasper Jiménez MD (Electronically Signed) Final Date: 21 July 2024 16:36
[2024-07-21] MEDS: ACETAMINOPHEN TAB 325 MG TAB PO PRN (18:33)
[2024-07-21] MEDS: METOPROLOL SUCCINATE (ER) 50 MG TAB.ER.24H PO SCH (20:13)
[2024-07-22 06:20] LABS: Glucose,Whole Blood 97 mg/dL (70-110)
[2024-07-22 08:57] VITALS: TEMP 98.2
[2024-07-22] MEDS: LORATADINE-PSEUDOEPH 5-120 MG 1 EACH TAB.ER.12H PO PRN (08:57)
[2024-07-22] MEDS: ACETAMINOPHEN IV (For NPO) 1,000 MG in EMPTY BAG 1 BAG IVPB STA (09:11)
[2024-07-22] MEDS: MAGNESIUM SULFATE-D5W PMX 1 GM in DEXTROSE/WATER 1 100ML.BAG IVPB ONE (09:16)
--- NOTE | 2024-07-22 09:26 | P.DS ---
Providers Date of admission: 07/20/24 17:45 Expected date of discharge: 07/22/24 Attending physician: Rich Villegas MD Consults: 07/20/24 17:44 Consult Physician Routine Consulting Provider: Jennifer Bolaños Consult Reason/Comments: cva/tia Do you want consulting provider notified?: Yes Primary care physician: Ann Haro [facility] Course: Final Diagnoses: Migraine headache with aphasia, dysarthria ruling out TIA, CVA History of migraines Hypothyroidism Gastroesophageal reflux disease Osteoarthritis PAT, exercise-induced Damon's esophagus Bilateral cataract surgery History of panic attacks, last one 20 years ago Hospital course:This is a 69-year-old female with past medical history significant for migraines hypothyroidism, gastroesophageal reflux disease, Damon's esophagus, PAT, exercise-induced, osteoarthritis, panic attack 20 years ago presented to the ER with progressing migraine accompanied by aphasia. Patient reports her last migraine was about a year ago. Reports yesterday morning developed migraine headache left-sided frontal/occipital, with its common aura,"shimmering " vision, encounter trouble reading the screen and proceeded to lay down for couple of hours. Upon awakening she experienced word finding difficulty. States that she was able to understand what was being said to her, knew what she wanted to say, but unable to say the right words. Both she and her were aware of her difficulty speaking. During this event patient denied heaviness, weakness of extremities, numbness or tingling. Proceeded to PCPs office and was immediately directed to the ER. Patient was outside the window for tPA. Continued to have left occipital headache, received Tylenol in the ER. Family history unknown, patient is adopted. IV fluid hydration, statin and aspirin. PPI ordered for GI prophylaxis. Ambulatory.Telemetry monitoring, neurochecks, neurology consult in place. Echo pending. PT/OT/speech therapy consults in place. Significant clinical improvement. Speech fluent, appropriate, no dysarthria, no aphasia. Evaluated by speech therapy reporting no deficits noted. Reports headache this morning, nausea and vomiting x 1-states it is from her sinuses draining, as she did not receive her Zyrtec last night. Continues on Lipitor and aspirin. neurology following, MRI pending. Patient will be discharged home today in a stable condition with guarded prognosis pending MRI results, final DC recommendations and clearance per neurology. The impression and plan of care has been dictated as directed. : I performed a history and examination of this patient, discussed the same with the dictator. I agree with the dictator's note ,documented as a scribe. Any additional findings or plans will be noted. Patient Condition at Discharge: Stable Plan - Discharge Summary Discharge Rx Participant: No New Discharge Prescriptions: New Atorvastatin [Lipitor] 20 mg PO HS #30 tablet Aspirin EC [Ecotrin Low Dose] 81 mg PO DAILY #30 tab Continue Famotidine [Pepcid] 20 mg PO HS Levothyroxine Sodium [Synthroid] 56 mcg PO SUWEFR Metoprolol Succinate [Toprol XL] 50 mg PO HS Levothyroxine Sodium [Synthroid] 112 mcg PO DAILY Calcium Carbonate/Vitamin D3 [Calcium 600 mg-D3 20 mcg (800 unit)] 1 tab PO HS Levocetirizine Dihydrochloride 5 mg PO HS Discharge Medication List Calcium Carbonate/Vitamin D3 [Calcium 600 mg-D3 20 mcg (800 unit)] 1 tab PO HS 10/09/23 [History] Famotidine [Pepcid] 20 mg PO HS 10/09/23 [History] Levocetirizine Dihydrochloride 5 mg PO HS 10/09/23 [History] Levothyroxine Sodium [Synthroid] 112 mcg PO DAILY 10/09/23 [History] Metoprolol Succinate [Toprol XL] 50 mg PO HS 10/09/23 [History] Levothyroxine Sodium [Synthroid] 56 mcg PO SUWEFR 07/20/24 [History] Aspirin EC [Ecotrin Low Dose] 81 mg PO DAILY #30 tab 07/22/24 [Rx] Atorvastatin [Lipitor] 20 mg PO HS #30 tablet 07/22/24 [Rx] Follow up Appointment(s)/Referral(s): Rich Villegas MD [STAFF PHYSICIAN] - 1 Week Maegan Metz MD [Medical Doctor] - 1 Week
--- NOTE | 2024-07-22 10:48 | P.CNNES ---
History of Present Illness Consult date: 07/21/24 Requesting physician: Ras Silva Reason for Consult: cva/tia History of Present Illness: Patient is a 69-year-old right-handed female with longstanding history of migraine with aura, came to the hospital yesterday at 2:12 PM for strokelike symptoms versus complex migraine. Patient states that yesterday she was sitting at work on the computer, when at around 10:30 AM she developed her migraine aura consisting of shimmering visual field. She felt migraine coming on and typically she has difficulty with reading with the aura. She took 2 Tylenol and 2 Advil's, laid down and about half an hour later, nothing has improved. She took her Zomig nasal spray and then went to bed. After taking 2 hours nap, when she woke up, she still had some pain although not as bad. However she noticed that she could not talk. She could hear, could not get words out of her mouth. Her brought her to the hospital. By the time she came to the ER, she was able to speak a single word. She was taken to CT and when she returned back from the CT, she was able to put words together. There was no facial droop, focal numbness or tingling, no balance issues. Vital signs on arrival blood pressure 156/82, pulse is 75 temperature 98.4. Blood test shows normal CBC, PT PTT, normal CMP, normal troponin. EKG showed sinus rhythm. Possible left atrial enlargement. CT head revealed no acute bleed or mass effect. No significant abnormality. Chest x-ray showed no acute cardiopulmonary process. Patient has history of migraines since she had puberty. She used to have migraine and sinus headaches. The migraines were preceded with a visual aura consisting of shimmering in the visual field, like looking at an [place], cannot see but cannot read. This lasts for 20 to 25 minutes, followed by headache. Patient states that if she cannot catch her migraine during an aura,the headache goes away shortly, but otherwise it gets prolonged and difficult to treat. Her migraines remarkably improved after her menopause. However since she moved to [place] from [place], the headache has almost gone away. In the last 2 years, she had the second migraine. The 1 before was about 6 months ago, when she felt coming on, she took 2 Advil's and 2 Tylenol, and got worse and it lasted for 1-1/2 days. Home medications include Pepcid, metoprolol, levothyroxine, calcium. Vitamin D. Patient does not take any antiplatelet medication. Does not take any HRT. Denies any tobacco or alcohol. No hypertension or diabetes. Patient has history of tachycardia for which she takes metoprolol, famotidine. Review of Systems All pertinent positive and negative review of systems mentioned in the HPI. Otherwise unremarkable. Past Medical History Past Medical History: GERD/Reflux, Osteoarthritis (OA), Thyroid Disorder Additional Past Medical History / Comment(s): OA "everywhere", and "PAT- excercise induced tachycardia"; dislocated right shoulder 2 yrs ago after fall; hx. barretts esophagus and ulcer on first EGD 10-12 yrs ago. food feeling like it "gets stuck" History of Any Multi-Drug Resistant Organisms: None Reported Past Surgical History: Appendectomy, Orthopedic Surgery, Tonsillectomy Additional Past Surgical History / Comment(s): "bone spurs removed from each shoulder." Deviated septal repair; cataract removal rt eye Sep 2023, cataracts removed left eye November 2023. EGD, colonoscopy about 5 yrs ago. Past Anesthesia/Blood Transfusion Reactions: No Reported Reaction Additional Past Anesthesia/Blood Transfusion Reaction / Comment(s): No hx of blood transfusion. Past Psychological History: No Psychological Hx Reported Smoking Status: Never smoker Past Alcohol Use History: None Reported Past Drug Use History: None Reported - Past Family History Father Family Medical History: No Reported History Medications and Allergies Home Medications Medication Instructions Recorded Confirmed Type Calcium Carbonate/Vitamin D3 1 tab PO HS 10/09/23 07/20/24 History [Calcium 600 mg-D3 20 mcg (800 unit)] Famotidine [Pepcid] 20 mg PO HS 10/09/23 07/20/24 History Levocetirizine Dihydrochloride 5 mg PO HS 10/09/23 07/20/24 History Levothyroxine Sodium [Synthroid] 112 mcg PO DAILY 10/09/23 07/20/24 History Metoprolol Succinate [Toprol XL] 50 mg PO HS 10/09/23 07/20/24 History Levothyroxine Sodium [Synthroid] 56 mcg PO SUWEFR 07/20/24 07/20/24 History Aspirin EC [Ecotrin Low Dose] 81 mg PO DAILY #30 tab 07/22/24 Rx Atorvastatin [Lipitor] 20 mg PO HS #30 tablet 07/22/24 Rx Allergies Allergy/AdvReac Type Severity Reaction Status Date / Time No Known Allergies Allergy Verified 07/20/24 16:27 Physical Examination - Vital Signs Vital Signs: Vital Signs Temp Pulse Resp BP Pulse Ox 07/21/24 12:28 80 17 135/83 96 07/21/24 11:25 98.4 F 76 16 134/73 96 07/21/24 09:25 98.6 F 68 16 132/75 98 07/21/24 07:42 64 16 118/64 98 07/21/24 06:25 67 17 125/70 95 07/21/24 02:34 65 18 116/72 99 07/20/24 22:01 66 17 129/76 07/20/24 18:00 77 20 140/60 98 07/20/24 16:47 68 20 140/68 98 07/20/24 16:00 64 20 141/77 98 07/20/24 15:58 64 20 141/77 98 07/20/24 14:21 68 16 160/85 98 07/20/24 14:18 98.4 F 75 18 156/82 99 Patient is an elderly female, very pleasant, in no acute distress. Patient is alert awake oriented to time place and person. Speech and language functions are normal. Patient can name and repeat very well. No aphasia or dysarthria. Attention, concentration and fund of knowledge is adequate. On cranial nerve examination, pupils are equal, round and reacting to light, visual crowe are full on confrontation, with no neglect on double simultaneous stimulation. Extraocular muscles are intact with no nystagmus. Face is symmetric, tongue protrudes to the midline. Palatal elevation and sensation normal, hearing and shoulder shrug normal, facial sensation normal. On muscle strength testing, there is no pronator drift and the strength is normal in arms and legs distally and proximally. Deep tendon reflexes are symmetric 1 in the upper limbs, 1+ in the lower extremi ties and plantars downgoing. Sensory to touch is equal with no neglect on double simultaneous stimulation. Cerebellar function showed no ataxia for [id number] testing. No dysdiadochokinesia. No ataxia for [id number] testing on either side. Tone and bulk of muscles normal. Gait deferred.. On general examination, there is no carotid bruit or murmur, S1-S2 audible. Chest is clear on consultation. Abdomen is soft nontender. No organomegaly, bowel sounds present. Peripheral pulses are present. No peripheral edema. Results - Laboratory Findings CBC and BMP: 07/20/24 14:28 07/20/24 14:28 Abnormal Lab Findings: Abnormal Labs 07/20/24 07/21/24 14: 07:25 BUN 21 H Glucose 104 H Cholesterol 223.00 H LDL Cholesterol, Calc 144.3 H HDL Cholesterol 65.10 H Assessment and Plan Assessment: * Possible complex migraine versus TIA. Rule out CVA. * Longstanding history of migraines with aura. Has been in almost remission for last 2 years (except for a breakthrough migraine 6 months ago) * Hyperlipidemia Plan: MRI of the brain without contrast, evaluate for acute CVA 2-D echo revealed normal left ventricular size and systolic function with EF 60 to 65%. No obvious regional wall motion abnormalities. Mild left atrial dilation. No valvular abnormalities. Mild MR, mild AR. CTA of head and neck revealed no significant abnormality. No aneurysm. Lipid panel with cholesterol 223, LDL 144, HDL 65, triglycerides 67. Recommend starting Lipitor 20 to 40 mg daily. Hemoglobin A1c 5.7. Observe blood pressure. If remaining high, may need further antihypertensive m edication. Patient currently on metoprolol for tachycardia. Start aspirin 325 mg daily. If the MRI is negative, may decrease it to 81 mg daily. Neuro checks every 4 hours. Telemetry monitoring rule out any arrhythmia PT, OT, speech therapy Patient recommended to follow-up with neurologist for management of her migraines. DVT prophylaxis: Patient low risk, as patient is ambulatory Neurology will continue to follow. Thank you for the consult. Time with Patient: Greater than 30
[2024-07-22 12:41] VITALS: BP 129/62; PULSE 79; RESP 16
--- NOTE | 2024-07-22 14:24 | MR ---
EXAMINATION TYPE: MR brain wo con DATE OF EXAM: 07/22/2024 1:24 PM COMPARISON: 07/20/2024. CLINICAL INDICATION: Female, 69 years old with history of Complex migraine versus TIA versus CVA.; PH H, Complex migraine, TIA, or CVA TECHNIQUE: Multi planar, multi sequence imaging was performed through the brain including: T1, T2, In version recovery, Diffusion weighted imaging, and gradient echo imaging. No gadolinium was given. FINDINGS: Prominent perivascular spaces in the left posterior cerebrum in the parietal lobe. The henderson -white junctions, ventricular system, basal cisterns appear unremarkable. Scattered foci of high T2 signal intensity are seen within the periventricular white matter. Midline structures show no abnorm ality. Diffusion-weighted imaging shows no evidence of restricted diffusion. The susceptibility weigh nola images do not reveal any evidence for micro-hemorrhage. The bone marrow signal is within normal limits. Paranasal sinuses and mastoid air cells: No significant paranasal sinus disease. Visualized orbits: Bilateral aphakia IMPRESSION: 1. No evidence of intracranial mass or acute/subacute infarct. 2. Minimal Nonspecific white matter changes, likely secondary to small vessel ischemic disease. [facility], , 07/22/2024 2:21 PM
[2024-07-22] MEDS ORDERED: ATORVASTATIN 20 MG TAB PO SCH (21:00)
[2024-07-23] MEDS ORDERED: ASPIRIN 81 MG PO SCH (09:00)
--- NOTE | 2024-07-23 11:57 | P.PN ---
Subjective Progress Note Date: 07/22/24 Patient was seen for a follow-up. Her headache is gone. Denies any visual symptoms. Speech is back to normal. No new concerns. Objective - Vital Signs Vital signs: Vital Signs Temp 98.2 F 07/22/24 08:55 Pulse 79 07/22/24 12:00 Resp 16 07/22/24 12:00 BP 129/62 07/22/24 12:00 Pulse Ox 96 07/22/24 12:00 FiO2 Intake & Output 07/21/24 07/22/24 07/22/24 18:59 06:59 18:59 Intake Total 478 Balance 478 Weight 80.2 kg Intake: Oral 478 Other: Voiding Method Toilet Toilet # Voids 1 - Exam Completely nonfocal. Mentation normal. - Labs CBC & Chem 7: 07/20/24 14:28 07/20/24 14:28 Assessment and Plan Assessment: * Possible complex migraine versus TIA. Acute CVA ruled out. * Longstanding history of migraines with aura. Has been in almost remission for last 2 years (except for a breakthrough migraine 6 months ago) * Dyslipidemia Plan: MRI of the brain without contrast, revealed no evidence of intracranial mass or acute/subacute infarct. Minimal nonspecific white matter changes, likely secondary to small vessel ischemic disease. I personally reviewed MRI on the computer and agree with the findings. 2-D echo revealed normal left ventricular size and systolic function with EF 60 to 65%. No obvious regional wall motion abnormalities. Mild left atrial dilation. No valvular abnormalities. Mild MR, mild AR. CTA of head and neck revealed no significant abnormality. No aneurysm. Lipid panel with cholesterol 223, LDL 144, HDL 65, triglycerides 67. Recommend starting Lipitor 20 mg daily. Hemoglobin A1c 5.7. Observe blood pressure. If remaining high, may need further antihypertensive medication. Patient currently on metoprolol for tachycardia. Patient to be maintained on aspirin 81 mg daily. Patient recommended to follow-up with neurologist for management of her migraines. Neurologically clear for discharge.
== END 2024-07-22 16:04 | disposition home or self-care (01) ==
LOC: EC 14:12 → 3SCARD 17:45 → INTOOBSV 17:45 → 3SCARD 20:45
PROVIDERS: ADMIT Family Medicine; ATTEND Family Medicine
DX: G43.109 Migraine with aura, not intractable, without status migrainosus (principal); E03.9 Hypothyroidism, unspecified; E78.5 Hyperlipidemia, unspecified; K21.9 Gastro-esophageal reflux disease without esophagitis; K22.70 Barrett's esophagus without dysplasia; M19.90 Unspecified osteoarthritis, unspecified site; R47.01 Aphasia; Z79.82 Long term (current) use of aspirin; Z79.890 Hormone replacement therapy; Z79.899 Other long term (current) drug therapy; Z86.59 Personal history of other mental and behavioral disorders
CPT/HCPCS: 96376; 96366; 96367; 96361; 96365; 96375; 99291; 36415; 93005; 93306; 97161; 97165; 92523; 80061; 80053; 82550; 84484; 85025; 85610; 85730; 83036; 71046; 70496; 70450; 70498; 70551; G0378 ×3; J3475 ×2; J0131; Q9967; J2470 ×2

== ENCOUNTER → 2025-03-01 | Outpatient (CLI) | payer MEDICARE ==
--- NOTE | 2025-03-01 10:40 | MM ---
Reason for Exam: Screening (asymptomatic). Last mammogram was performed 1 year(s) and 9 month(s) ago. Patient History: Menarche at age 12. Patient has no children. Postmenopausal. Patient used Hormonal Contraceptives for 17 years. Risk Values: Mami 5 year model risk: 1.9%. NCI Lifetime model risk: 5.4%. Prior Study Comparison: 09/08/2018 Bilateral Screening Mammogram, [place]. 05/25/2020 Bilateral Screening Mammogram, [place]. 06/14/2023 Bilateral MG 3D screening mammo w/cad, [facility]. Tissue Density: The breasts are heterogeneously dense, which may obscure small masses. Findings: Analyzed By CAD. Benign-appearing left axillary lymph nodes are redemonstrated. There is no suspicious group of microcalcifications or new suspicious mass in either breast. Overall Assessment: Negative, BI-RAD 1 Management: Screening Mammogram of both breasts in 1 year. . Patient should continue monthly self-breast exams. A clinical breast exam by your physician is recommended on an annual basis. This exam should not preclude additional follow-up of suspicious palpable abnormalities. Note on Mami scores and lifetime risk: 1. A Mami score greater than 3% is considered moderate risk. If this is the case, consider specialist referral to assess eligibility for a risk reducing agent. 2. If overall lifetime risk for the development of breast cancer is 20% or higher, the patient may qualify for future screening with alternating mammogram and breast MRI. [facility], , 03/01/2025 10:37 AM. Electronically signed and approved by: Gurinder Weiss M.D.
== END | disposition home or self-care (01) ==
LOC: RADMAMWWP 09:24
PROVIDERS: ATTEND Family Medicine
DX: Z12.31 Encounter for screening mammogram for malignant neoplasm of breast (principal); R92.333 Mammographic heterogeneous density, bilateral breasts; Z78.0 Asymptomatic menopausal state; Z92.0 Personal history of contraception
CPT/HCPCS: 77067